=== PATIENT | female | born 1995 | race Hispanic/Latino ===

== ENCOUNTER 2016-10-07 11:04 | Outpatient (CLI) | payer SELFPAY ==
[2016-10-07] MEDS ORDERED: LACTATED RINGERS 500 ML IV ONE (11:30)
[2016-10-07 12:13] VITALS: BP 100/68
[2016-10-07] MEDS ORDERED: LACTATED RINGERS 1,000 ML ONE (14:07)
[2016-10-07 14:46] LABS: Urine Drugs of Abuse Note Disclamer
[2016-10-07 15:01] LABS: Bacteria,Urine 1+ /HPF (Negative); Bilirubin,Urine NEG (Negative); Blood,Urine NEG (Negative); Hemoglobin 11.3 gm/dl (10.1-14.3); Ketones,Urine NEG (Negative); Leukocyte Esterase,Urine SM (Negative); Mean Corpuscular HGB Conc 33 % (30-34); Mean Corpuscular Hemoglobin 31 pg (28-32); Mean Corpuscular Volume 94 fl (79-97); Mucus,Urine 3+ /HPF; Nitrite,Urine NEG (Negative); Platelet Count 271 K/mm3 (140-440); Red Blood Count 3.62 M/mm3 (3.65-5.03); Red Cell Distribution Width 13.9 % (13.2-15.2); Urobilinogen,Urine < 2.0 mg/dL (<2.0); White Blood Count 13.2 K/mm3 (4.5-11.0)
[2016-10-07 16:01] LABS: Basophils % (Manual) 0 % (0.0-1.8); Blastocytes % (Manual) 0 %
[2016-10-07 16:02] LABS: Anisocytosis 1+; Diff Status Complete; Platelet Estimate Consistent w Auto
[2016-10-07 16:10] LABS: HIV-1 Antigen p24 Non React (Non React); HIVR-1/2 Ab Non React (Non React)
--- NOTE | 2016-10-08 08:07 | Ultrasound Report ---
OB ULTRASOUND History: well-being. Technique: Transabdominal ultrasound with Doppler interrogation. Gestation: Single Position: Breech Amniotic Fluid: Normal Placenta: Posterior Placental Grade: 1 The inferior margin of the placenta abuts the internal cervical os consistent with a marginal previa. Heart Rate: 129 BPM Cervical length: 5.3 cm (Normal > 3 cm) NEUROANATOMY VISUALIZED: Choroid Plexus Cisterna Magnum Cerebellum Lateral Ventricle ANATOMY VISUALIZED: Stomach Kidneys Bladder Diaphragm 4 Chamber Heart Heart 3 Vessel Cord Abd. Cord Insert SPINE VISUALIZED: Limited spine due to position The following are not demonstrated due to maternal body habitus or lie: Transverse and longitudinal views of the spine. BPD: 5.5 cm = 22 w 6 d HC: 22.2 cm = 24 w 0 d AC: 18.2 cm = 23 w 0 d FL: 4.6 cm = 25 w 3 d HC/AC Ratio: 1.21 Cephalic Index: 70.4 Estimated Weight: 651 grams LMP: 04/22/16 Clinical age = 24 w 0 d EDC: 01/27/17 US Gest. Age = 23 w 6 d EDC: 01/28/17
== END 2016-10-07 17:15 | disposition home or self-care (01) ==
LOC: TRG 11:04 → EDBD 11:04 → TRG 11:06
PROVIDERS: ATTEND Obstetrics & Gynecology
DX: O32.1XX0 Maternal care for breech presentation, not applicable or unspecified (principal); O99.332 Smoking (tobacco) complicating pregnancy, second trimester; O47.02 False labor before 37 completed weeks of gestation, second trimester; Z3A.23 23 weeks gestation of pregnancy
CPT/HCPCS: 36415; 59025; 76805; 80307; 81001; 85007; 85025; 86592; 86706; 86762; 87591; 87806; 96360; J7120

== ENCOUNTER 2017-06-15 17:00 | Emergency (ER) | payer MEDICAID, OTHER ==
[2017-06-15 17:37] LABS: Hematocrit 40.7 % (30.3-42.9); Hemoglobin 13.7 gm/dl (10.1-14.3); Mean Corpuscular HGB Conc 34 % (30-34); Mean Corpuscular Hemoglobin 30 pg (28-32); Mean Corpuscular Volume 89 fl (79-97); Platelet Count 275 K/mm3 (140-440); Red Cell Distribution Width 15.1 % (13.2-15.2)
[2017-06-15 17:43] LABS: BUN/Creatinine Ratio 24; Blood Urea Nitrogen 17 mg/dL (7-17); Calcium 8.4 mg/dL (8.4-10.2); Hemolysis Index 4
[2017-06-15 18:08] LABS: Bacteria,Urine 1+ /HPF (Negative); Bilirubin,Urine NEG (Negative); Blood,Urine SM (Negative); Color,Urine Yellow (Yellow); Mucus,Urine FEW /HPF; Protein,Urine <15 mg/dL mg/dL (Negative); Urobilinogen,Urine < 2.0 mg/dL (<2.0); WBC,Urine > 182.0 /HPF (0.0-6.0)
[2017-06-15 18:19] LABS: Benzodiazepines Screen,Urine PRESUMPTIVE NEGATIVE; Cocaine Screen,Urine PRESUMPTIVE NEGATIVE; Methadone Screen,Urine PRESUMPTIVE NEGATIVE; Opiate Screen,Urine PRESUMPTIVE NEGATIVE
[2017-06-15 18:36] LABS: Amphetamine Screen,Urine PRESUMPTIVE POSITIVE; Cannabinoid Screen,Urine PRESUMPTIVE POSITIVE
[2017-06-15 19:49] LABS: Anisocytosis 1+; Basophils % (Manual) 0 % (0.0-1.8); Eosinophils % (Manual) 0 % (0.0-4.3); Platelet Estimate Consistent w Auto; Total Cells Counted 100
[2017-06-15] MEDS ORDERED: HALDOL IM PRN (20:25)
[2017-06-15] MEDS ORDERED: TYLENOL PO PRN (20:25)
[2017-06-15] MEDS ORDERED: ZOFRAN ODT PO PRN (20:25)
[2017-06-15] MEDS ORDERED: ATIVAN IM PRN (20:25)
[2017-06-15] MEDS ORDERED: ATIVAN IM SCH (20:30)
--- NOTE | 2017-06-15 21:23 | Emergency Department Report ---
ED General Adult HPI - General Chief complaint: Psych Stated complaint: MENTAL HEALTH Time Seen by Provider: 06/15/17 20:25 Source: patient, RN notes reviewed Mode of arrival: Ambulatory Limitations: Other (patient is psychotic and disorganized) - History of Present Illness Initial comments: This is a 22-year-old female who was previously unknown to this provider, patient presents to the ER with complaint of suicidality, methamphetamine use, reports hitting her head on a brick wall, and also reports head trauma 2 weeks ago. Her symptoms are constant, they exacerbated when she consumes methamphetamine. She also describes dysuria. Her symptoms do not radiate anywhere. She does not have access to guns or firearms. She wants to kill herself and does not have a concrete plan. She reports no hallucinations at this provider. -: Gradual Consistency: constant Improves with: other Worsens with: other Associated Symptoms: other. denies: confusion, chest pain, cough, diaphoresis, fever/chills, headaches, loss of appetite, malaise, nausea/vomiting, rash, seizure, shortness of breath, syncope, weakness - Related Data Allergies Allergy/AdvReac Type Severity Reaction Status Date / Time No Known Allergies Allergy Verified 10/07/16 11:38 ED Review of Systems ROS: Stated complaint: MENTAL HEALTH Other details as noted in HPI Constitutional: denies: fever Eyes: denies: vision change ENT: denies: epistaxis Respiratory: denies: cough Cardiovascular: denies: chest pain Gastrointestinal: denies: vomiting Genitourinary: dysuria Musculoskeletal: denies: back pain Neurological: denies: abnormal gait Psychiatric: suicidal thoughts ED Past Medical Hx - Past Medical History Previous Medical History?: Yes Hx Hypertension: No Hx Diabetes: No Hx Deep Vein Thrombosis: No Hx Renal Disease: No Hx Sickle Cell Disease: No Hx Seizures: No Hx Psychiatric Treatment: Yes (drug use) Hx Asthma: No Hx HIV: No - Surgical History Past Surgical History?: No - Social History Smoking Status: Current Every Day Smoker Substance Use Type: Alcohol, Heroin, Marijuana, Tranquilizers, Methamphetamines ED Physical Exam - General Limitations: No Limitations General appearance: alert, in no apparent distress - Head Head exam: Present: atraumatic, normocephalic - Eye Eye exam: Present: normal appearance, EOMI. Absent: nystagmus - ENT ENT exam: Present: normal exam, normal orophraynx, mucous membranes moist, normal external ear exam - Neck Neck exam: Present: normal inspection, full ROM. Absent: tenderness, meningismus - Respiratory Respiratory exam: Present: normal lung sounds bilaterally. Absent: respiratory distress - Cardiovascular Cardiovascular Exam: Present: normal rhythm, tachycardia, normal heart sounds. Absent: systolic murmur, diastolic murmur, rubs, gallop - GI/Abdominal GI/Abdominal exam: Present: soft, normal bowel sounds. Absent: distended, tenderness, guarding, rebound, rigid, pulsatile mass - Extremities Exam Extremities exam: Present: normal inspection, full ROM, normal capillary refill. Absent: pedal edema, joint swelling, calf tenderness - Back Exam Back exam: Present: normal inspection, full ROM. Absent: tenderness, CVA tenderness (R), paraspinal tenderness, vertebral tenderness - Neurological Exam Neurological exam: Present: alert, oriented X3, CN II-XII intact, normal gait, other (Extraocular movements intact. Tongue midline. No facial droop. Facial sensation intact to light touch in the V1, V2, V3 distribution bilaterally. 5 and 5 strength in 4 extremities.. Sensation is intact to light touch in 4 extremities.). Absent: motor sensory deficit - Psychiatric Psychiatric exam: Present: agitated, anxious, suicidal ideation - Skin Skin exam: Present: warm, dry, intact, normal color. Absent: rash ED Course Vital Signs 06/15/17 06/15/17 06/15/17 17:05 21:00 22:00 Temperature 97.5 F L 98.6 F Pulse Rate 132 H 100 H Respiratory 20 18 20 Rate Blood Pressure 112/73 Blood Pressure 99/66 [Left] O2 Sat by Pulse 100 100 100 Oximetry - Reevaluation(s) Reevaluation #1: 06/15/17 21:21 Differential diagnosis, including but not limited to: Psychosis, blunt head injury, urinary tract infection, methamphetamine use Assessment and plan: 22-year-old female who was disorganized, psychotic, suicidal, requires 1013, physical exam unremarkable with the exception of tachycardia, creatinine kinase within normal limits, tachycardia likely secondary to methamphetamine use. Noncontrast CT scan of the brain is ordered. This is ordered given her history of head trauma. There is no cervical spine pain or tenderness. Reevaluation #2: 06/16/17 00:[address] scan of the brain is negative for acute findings, based on the current information, they does not appear to be any immediate medical contraindication to psychiatric admission, evaluation and consultation at this time. crisis team was informed. ED Medical Decision Making - Lab Data Result diagrams: 06/15/17 17:21 06/15/17 17:21 Vital Signs 06/15/17 17:05 Temperature 97.5 F L Pulse Rate 132 H Respiratory 20 Rate Blood Pressure 112/73 O2 Sat by Pulse 100 Oximetry Lab Results 06/15/17 06/15/17 06/15/17 Range/Units 17:21 17:21 17:21 WBC (4.5-11.0) K/mm3 RBC (3.65-5.03) M/mm3 Hgb (10.1-14.3) gm/dl Hct (30.3-42.9) % MCV (79-97) fl MCH (28-32) pg MCHC (30-34) % RDW (13.2-15.2) % Plt Count (140-440) K/mm3 Add Manual Diff Total Counted Seg Neutrophils % Seg Neuts % (Manual) (40.0-70.0) % Band Neutrophils % % Lymphocytes % (Manual) (13.4-35.0) % Reactive Lymphs % (Man) % Monocytes % (Manual) (0.0-7.3) % Eosinophils % (Manual) (0.0-4.3) % Basophils % (Manual) (0.0-1.8) % Metamyelocytes % % Myelocytes % % Promyelocytes % % Blast Cells % % Nucleated RBC % Seg Neutrophils # Man (1.8-7.7) K/mm3 Band Neutrophils # K/mm3 Lymphocytes # (Manual) (1.2-5.4) K/mm3 Abs React Lymphs (Man) K/mm3 Monocytes # (Manual) (0.0-0.8) K/mm3 Eosinophils # (Manual) (0.0-0.4) K/mm3 Basophils # (Manual) (0.0-0.1) K/mm3 Metamyelocytes # K/mm3 Myelocytes # K/mm3 Promyelocytes # K/mm3 Blast Cells # K/mm3 WBC Morphology Hypersegmented Neuts Hyposegmented Neuts Hypogranular Neuts Smudge Cells Toxic Granulation Toxic Vacuolation Dohle Bodies Pelger-Huet Anomaly Nino Rods Platelet Estimate Clumped Platelets Plt Clumps, EDTA Large Platelets Giant Platelets Platelet Satelliting Plt Morphology Comment RBC Morphology Dimorphic RBCs Polychromasia Hypochromasia Poikilocytosis Anisocytosis Microcytosis Macrocytosis Spherocytes Pappenheimer Bodies Sickle Cells Target Cells Tear Drop Cells Ovalocytes Helmet Cells Jeffrey-Westwood Bodies [place] Rings Elías Cells Bite Cells Crenated Cell Elliptocytes Acanthocytes (Spur) Rouleaux Hemoglobin C Crystals Schistocytes Malaria parasites Akil Bodies Hem Pathologist Commnt Sodium 140 (137-145) mmol/L Potassium 4.2 (3.6-5.0) mmol/L Chloride 100.3 (98-107) mmol/L Carbon Dioxide 27 (22-30) mmol/L Anion Gap 17 mmol/L BUN 17 (7-17) mg/dL Creatinine 0.7 (0.7-1.2) mg/dL Estimated GFR > 60 ml/min BUN/Creatinine Ratio 24 % Glucose 123 H (65-100) mg/dL Calcium 8.4 (8.4-10.2) mg/dL Total Creatine Kinase 78 (30-135) units/L HCG, Qual (Negative) Urine Color (Yellow) Urine Turbidity (Clear) Urine pH (5.0-7.0) Ur Specific [place] (1.003-1.030) Urine Protein (Negative) mg/dL Urine Glucose (UA) (Negative) mg/dL Urine Ketones (Negative) mg/dL Urine Blood (Negative) Urine Nitrite (Negative) Urine Bilirubin (Negative) Urine Urobilinogen (<2.0) mg/dL Ur Leukocyte Esterase (Negative) Urine WBC (Auto) (0.0-6.0) /HPF Urine RBC (Auto) (0.0-6.0) /HPF U Epithel Cells (Auto) (0-13.0) /HPF Urine Bacteria (Auto) (Negative) /HPF Urine Mucus /HPF Salicylates < 0.3 L (2.8-20.0) mg/dL Urine Opiates Screen Urine Methadone Screen Acetaminophen < 15.0 (10.0-30.0) ug/mL Ur Barbiturates Screen Ur Phencyclidine Scrn Ur Amphetamines Screen U Benzodiazepines Scrn Urine Cocaine Screen U Marijuana (THC) Screen Drugs of Abuse Note Plasma/Serum Alcohol (0-0.07) % 06/15/17 06/15/17 06/15/17 Range/Units 17:21 17:21 17:21 WBC 7.9 (4.5-11.0) K/mm3 RBC 4.60 (3.65-5.03) M/mm3 Hgb 13.7 (10.1-14.3) gm/dl Hct 40.7 (30.3-42.9) % MCV 89 (79-97) fl MCH 30 (28-32) pg MCHC 34 (30-34) % RDW 15.1 (13.2-15.2) % Plt Count 275 (140-440) K/mm3 Add Manual Diff Complete Total Counted 100 Seg Neutrophils % Chocolate Coater Seg Neuts % (Manual) 91.0 H (40.0-70.0) % Band Neutrophils % 0 % Lymphocytes % (Manual) 8.0 L (13.4-35.0) % Reactive Lymphs % (Man) 0 % Monocytes % (Manual) 1.0 (0.0-7.3) % Eosinophils % (Manual) 0 (0.0-4.3) % Basophils % (Manual) 0 (0.0-1.8) % Metamyelocytes % 0 % Myelocytes % 0 % Promyelocytes % 0 % Blast Cells % 0 % Nucleated RBC % Not Reportable Seg Neutrophils # Man 7.2 (1.8-7.7) K/mm3 Band Neutrophils # 0.0 K/mm3 Lymphocytes # (Manual) 0.6 L (1.2-5.4) K/mm3 Abs React Lymphs (Man) 0.0 K/mm3 Monocytes # (Manual) 0.1 (0.0-0.8) K/mm3 Eosinophils # (Manual) 0.0 (0.0-0.4) K/mm3 Basophils # (Manual) 0.0 (0.0-0.1) K/mm3 Metamyelocytes # 0.0 K/mm3 Myelocytes # 0.0 K/mm3 Promyelocytes # 0.0 K/mm3 Blast Cells # 0.0 K/mm3 WBC Morphology Not Reportable Hypersegmented Neuts Not Reportable Hyposegmented Neuts Not Reportable Hypogranular Neuts Not Reportable Smudge Cells Not Reportable Toxic Granulation Not Reportable Toxic Vacuolation Not Reportable Dohle Bodies Not Reportable Pelger-Huet Anomaly Not Reportable Nino Rods Not Reportable Platelet Estimate Consistent w auto Clumped Platelets Not Reportable Plt Clumps, EDTA Not Reportable Large Platelets Not Reportable Giant Platelets Not Reportable Platelet Satelliting Not Reportable Plt Morphology Comment Not Reportable RBC Morphology Not Reportable Dimorphic RBCs Not Reportable Polychromasia Not Reportable Hypochromasia Not Reportable Poikilocytosis Not Reportable Anisocytosis 1+ Microcytosis Not Reportable Macrocytosis Not Reportable Spherocytes Not Reportable Pappenheimer Bodies Not Reportable Sickle Cells Not Reportable Target Cells Not Reportable Tear Drop Cells Not Reportable Ovalocytes Not Reportable Helmet Cells Not Reportable Jeffrey-Westwood Bodies Not Reportable [place] Rings Not Reportable Elías Cells Not Reportable Bite Cells Not Reportable Crenated Cell Not Reportable Elliptocytes Not Reportable Acanthocytes (Spur) Not Reportable Rouleaux Not Reportable Hemoglobin C Crystals Not Reportable Schistocytes Not Reportable Malaria parasites Not Reportable Akil Bodies Not Reportable Hem Pathologist Commnt No Sodium (137-145) mmol/L Potassium (3.6-5.0) mmol/L Chloride (98-107) mmol/L Carbon Dioxide (22-30) mmol/L Anion Gap mmol/L BUN (7-17) mg/dL Creatinine (0.7-1.2) mg/dL Estimated GFR ml/min BUN/Creatinine Ratio % Glucose (65-100) mg/dL Calcium (8.4-10.2) mg/dL Total Creatine Kinase (30-135) units/L HCG, Qual Negative (Negative) Urine Color (Yellow) Urine Turbidity (Clear) Urine pH (5.0-7.0) Ur Specific [place] (1.003-1.030) Urine Protein (Negative) mg/dL Urine Glucose (UA) (Negative) mg/dL Urine Ketones (Negative) mg/dL Urine Blood (Negative) Urine Nitrite (Negative) Urine Bilirubin (Negative) Urine Urobilinogen (<2.0) mg/dL Ur Leukocyte Esterase (Negative) Urine WBC (Auto) (0.0-6.0) /HPF Urine RBC (Auto) (0.0-6.0) /HPF U Epithel Cells (Auto) (0-13.0) /HPF Urine Bacteria (Auto) (Negative) /HPF Urine Mucus /HPF Salicylates (2.8-20.0) mg/dL Urine Opiates Screen Urine Methadone Screen Acetaminophen (10.0-30.0) ug/mL Ur Barbiturates Screen Ur Phencyclidine Scrn Ur Amphetamines Screen U Benzodiazepines Scrn Urine Cocaine Screen U Marijuana (THC) Screen Drugs of Abuse Note Plasma/Serum Alcohol < 0.01 (0-0.07) % 06/15/17 06/15/17 Range/Units 17:46 Unknown WBC (4.5-11.0) K/mm3 RBC (3.65-5.03) M/mm3 Hgb (10.1-14.3) gm/dl Hct (30.3-42.9) % MCV (79-97) fl MCH (28-32) pg MCHC (30-34) % RDW (13.2-15.2) % Plt Count (140-440) K/mm3 Add Manual Diff Total Counted Seg Neutrophils % Seg Neuts % (Manual) (40.0-70.0) % Band Neutrophils % % Lymphocytes % (Manual) (13.4-35.0) % Reactive Lymphs % (Man) % Monocytes % (Manual) (0.0-7.3) % Eosinophils % (Manual) (0.0-4.3) % Basophils % (Manual) (0.0-1.8) % Metamyelocytes % % Myelocytes % % Promyelocytes % % Blast Cells % % Nucleated RBC % Seg Neutrophils # Man (1.8-7.7) K/mm3 Band Neutrophils # K/mm3 Lymphocytes # (Manual) (1.2-5.4) K/mm3 Abs React Lymphs (Man) K/mm3 Monocytes # (Manual) (0.0-0.8) K/mm3 Eosinophils # (Manual) (0.0-0.4) K/mm3 Basophils # (Manual) (0.0-0.1) K/mm3 Metamyelocytes # K/mm3 Myelocytes # K/mm3 Promyelocytes # K/mm3 Blast Cells # K/mm3 WBC Morphology Hypersegmented Neuts Hyposegmented Neuts Hypogranular Neuts Smudge Cells Toxic Granulation Toxic Vacuolation Dohle Bodies Pelger-Huet Anomaly Nino Rods Platelet Estimate Clumped Platelets Plt Clumps, EDTA Large Platelets Giant Platelets Platelet Satelliting Plt Morphology Comment RBC Morphology Dimorphic RBCs Polychromasia Hypochromasia Poikilocytosis Anisocytosis Microcytosis Macrocytosis Spherocytes Pappenheimer Bodies Sickle Cells Target Cells Tear Drop Cells Ovalocytes Helmet Cells Jeffrey-Westwood Bodies [place] Rings Elías Cells Bite Cells Crenated Cell Elliptocytes Acanthocytes (Spur) Rouleaux Hemoglobin C Crystals Schistocytes Malaria parasites Akil Bodies Hem Pathologist Commnt Sodium (137-145) mmol/L Potassium (3.6-5.0) mmol/L Chloride (98-107) mmol/L Carbon Dioxide (22-30) mmol/L Anion Gap mmol/L BUN (7-17) mg/dL Creatinine (0.7-1.2) mg/dL Estimated GFR ml/min BUN/Creatinine Ratio % Glucose (65-100) mg/dL Calcium (8.4-10.2) mg/dL Total Creatine Kinase (30-135) units/L HCG, Qual (Negative) Urine Color Yellow (Yellow) Urine Turbidity Clear (Clear) Urine pH 6.0 (5.0-7.0) Ur Specific [place] 1.014 (1.003-1.030) Urine Protein <15 mg/dl (Negative) mg/dL Urine Glucose (UA) Neg (Negative) mg/dL Urine Ketones Neg (Negative) mg/dL Urine Blood Sm (Negative) Urine Nitrite Neg (Negative) Urine Bilirubin Neg (Negative) Urine Urobilinogen < 2.0 (<2.0) mg/dL Ur Leukocyte Esterase Lg (Negative) Urine WBC (Auto) > 182.0 H (0.0-6.0) /HPF Urine RBC (Auto) 36.0 (0.0-6.0) /HPF U Epithel Cells (Auto) 1.0 (0-13.0) /HPF Urine Bacteria (Auto) 1+ (Negative) /HPF Urine Mucus Few /HPF Salicylates (2.8-20.0) mg/dL Urine Opiates Screen Presumptive negative Urine Methadone Screen Presumptive negative Acetaminophen (10.0-30.0) ug/mL Ur Barbiturates Screen Presumptive negative Ur Phencyclidine Scrn Presumptive negative Ur Amphetamines Screen Presumptive positive U Benzodiazepines Scrn Presumptive negative Urine Cocaine Screen Presumptive negative U Marijuana (THC) Screen Presumptive positive Drugs of Abuse Note Disclamer Plasma/Serum Alcohol (0-0.07) % Critical care attestation.: If time is entered above; I have spent that time in minutes in the direct care of this critically ill patient, excluding procedure time. ED Disposition Clinical Impression: Medical clearance for psychiatric admission, Suicide ideation, Methamphetamine abuse Disposition: [id number] PSY HOSP/PSY UNIT Is pt being admited?: No Does the pt Need Aspirin: No Condition: Stable
--- NOTE | 2017-06-15 23:00 | Cat Scan Report ---
FINAL REPORT PROCEDURE: CT HEAD/BRAIN WO CON TECHNIQUE: Computerized tomography of the head was performed without contrast material. HISTORY: HISTORY OF HEAD TRAUMA COMPARISON: No prior studies are available for comparison. FINDINGS: Skull and scalp: Fracture left nasal bone strut. Paranasal sinuses: Mucosal thickening left posterior maxillary sinus. Ventricles and subarachnoid spaces: Normal. Cerebrum: No evidence of hemorrhage, acute infarction or mass . Cerebellum and brainstem: No evidence of hemorrhage, acute infarction or mass. Vasculature: Normal. Comments: None. IMPRESSION: No acute intracranial pathology. No intracranial bleed or fracture
[2017-06-15] MEDS: MACROBID PO SCH (23:21)
[2017-06-16] MEDS: MACROBID PO SCH (10:40)
[2017-06-16] MEDS ORDERED: HABITROL TD ONE (12:27)
--- NOTE | 2017-06-16 17:37 | Consultation ---
History of Present Illness - Reason for Consult Consult date: 06/16/17 Reason for consult: Mental Health Evaluation Requesting physician: DAISY LAL - Chief Complaint Chief complaint: "I need help" - History of Present Psychiatric Illness 22 y.o. white female presenting to [facility] for substance abuse and SI's. Today the patient is cooperative, but anxious during the assessment. She stated that she has been binging on amphetamines for several days prior to her admission to the hospital. She stated that she used drugs to decrease the voices she hear consistently. She stated that she hear voices when she isn't using recreational drugs. She stated that her life is the cause of her being suicidal on admission. She could not confirm or deny SI's when asked. She rate her depression/anxiety 7/10, with 10 being the worse. She stated that her priority is staying off drugs when discharged. She admitted to erratic sleep and a poor appetite. She denies HI's and VH's. She denies any manic episodes in the past. She denies alcohol consumption (etoh). Medications and Allergies Allergies Allergy/AdvReac Type Severity Reaction Status Date / Time No Known Allergies Allergy Verified 10/07/16 11:38 Active Meds: Active Medications Acetaminophen (Tylenol) 650 mg PO Q6HR PRN PRN Reason: Pain Haloperidol Lactate (Haldol) 5 mg IM Q6HR PRN PRN Reason: Agitation Lorazepam (Ativan) 2 mg IM Q4HR PRN PRN Reason: Agitation Last Admin: 06/16/17 13:09 Dose: 2 mg Lorazepam (Ativan) 3 mg IM NOW [facility] Last Admin: 06/15/17 23:21 Dose: 3 mg Nitrofurantoin Macrocrystals (Macrobid) 100 mg PO BID [facility] Stop: 06/22/17 10:01 Last Admin: 06/16/17 10:40 Dose: 100 mg Ondansetron HCl (Zofran Odt) 4 mg PO Q6HR PRN PRN Reason: Nausea Past psychiatric history - Past Medical History Past Medical History: other Past Surgical History: No surgical history - past Psychiatric treatment and history Psych: Anxiety, Depression psychiatric treatment history: Seen outpatient for depression and anxiety. Denies a fam psy hx. - Social History Social history: other (Homeless) Mental Status Exam - Vital signs Last Vital Signs Temp 97.6 F 06/16/17 08:30 Pulse 112 H 06/16/17 08:30 Resp 16 06/16/17 08:30 BP 102/67 06/16/17 08:30 Pulse Ox 100 06/16/17 08:30 - Exam Narrative exam: MSE: Appearance: cooperative Behavior: regular eye contact Speech: regular rate and tone Mood: "anxious and depressed" Affect: congruent to mood Thought Process: circumstantial Thought Content: denies HI's and VH's, cannot confirm or deny SI's Motor Activity: ambulatory Cognition: A/O x3 Insight: variable Judgment: variable Results Result Diagrams: 06/15/17 17:21 06/15/17 17:21 Abnormal lab results 06/15/17 06/15/17 06/15/17 Range/Units 17:21 17:21 17:21 Seg Neuts % (Manual) 91.0 H (40.0-70.0) % Lymphocytes % (Manual) 8.0 L (13.4-35.0) % Lymphocytes # (Manual) 0.6 L (1.2-5.4) K/mm3 Glucose 123 H (65-100) mg/dL Urine WBC (Auto) (0.0-6.0) /HPF Salicylates < 0.3 L (2.8-20.0) mg/dL 06/15/17 Range/Units 17:46 Seg Neuts % (Manual) (40.0-70.0) % Lymphocytes % (Manual) (13.4-35.0) % Lymphocytes # (Manual) (1.2-5.4) K/mm3 Glucose (65-100) mg/dL Urine WBC (Auto) > 182.0 H (0.0-6.0) /HPF Salicylates (2.8-20.0) mg/dL All other labs normal. Assessment and Plan Assessment and plan: Impression: MDD with psychosis. Substance Use DO (amphetamines). Today the patient is cooperative, but anxious during the assessment. The patient cannot confirm or deny SI's. DDx: Schizoaffective DO, R/O Bipolar DO, R/O Substance Induced Mood DO Recommendation/Plan: Continue 1013 with placement to inpatient psy services. Start Zoloft 50 mg PO daily for depression, Seroquel 100 mg PO HS for mood/ psychosis, and Vistaril 25 mg PO Q6hrs PRN for acute anxiety. Discussed possible suicidality/medication induced patti with patient reference Harlan. Discussed possible metabolic side effects of Seroquel with patient.
[2017-06-16] MEDS ORDERED: VISTARIL PO PRN (17:53)
[2017-06-16] MEDS ORDERED: ZOLOFT PO SCH (18:00)
[2017-06-16 19:56] VITALS: BP 115/73
== END 2017-06-16 19:57 ==
LOC: ED 17:00
DX: F32.9 Major depressive disorder, single episode, unspecified (principal); F23 Brief psychotic disorder
CPT/HCPCS: 36415; 70450; 80048; 80307; 81001; 82550; 84703; 85007; 85025; 96372; 99284; G0480; J2060; 80320

== ENCOUNTER 2017-07-13 11:25 | Emergency (ER) | payer OTHER ==
[2017-07-13 12:23] LABS: Basophils # (Auto) 0.1 K/mm3 (0.0-0.1); Basophils % (Auto) 0.7 % (0.0-1.8); Eosinophils # (Auto) 0.1 K/mm3 (0.0-0.4); Eosinophils % (Auto) 1.1 % (0.0-4.3); Hemoglobin 12.7 gm/dl (10.1-14.3); Lymphocytes # (Auto) 2.4 K/mm3 (1.2-5.4); Mean Corpuscular HGB Conc 32 % (30-34); Mean Corpuscular Hemoglobin 28 pg (28-32); Mean Corpuscular Volume 89 fl (79-97); Monocytes # (Auto) 0.7 K/mm3 (0.0-0.8); Monocytes % (Auto) 6.2 % (0.0-7.3); Platelet Count 411 K/mm3 (140-440); Red Blood Count 4.48 M/mm3 (3.65-5.03); Red Cell Distribution Width 15.8 % (13.2-15.2)
[2017-07-13 12:39] LABS: BUN/Creatinine Ratio 21; Blood Urea Nitrogen 17 mg/dL (7-17); Calcium 9.5 mg/dL (8.4-10.2); Hemolysis Index 3
[2017-07-13 12:47] LABS: HCG Qualitative,Urine Negative (Negative)
[2017-07-13 12:51] LABS: Bacteria,Urine 1+ /HPF (Negative); Bilirubin,Urine NEG (Negative); Blood,Urine NEG (Negative); Color,Urine Yellow (Yellow); Hyaline Casts,Urine 2 /LPF; Mucus,Urine 3+ /HPF; Protein,Urine <15 mg/dL mg/dL (Negative)
[2017-07-13 12:59] LABS: Cocaine Screen,Urine PRESUMPTIVE NEGATIVE; Methadone Screen,Urine PRESUMPTIVE NEGATIVE; Opiate Screen,Urine PRESUMPTIVE NEGATIVE
[2017-07-13 13:18] LABS: Amphetamine Screen,Urine PRESUMPTIVE POSITIVE; Benzodiazepines Screen,Urine PRESUMPTIVE POSITIVE; Cannabinoid Screen,Urine PRESUMPTIVE POSITIVE
--- NOTE | 2017-07-13 14:05 | Emergency Department Report ---
ED Psych HPI - General Chief Complaint: Psych Stated Complaint: MENTAL HEALTH EVALUATION Time Seen by Provider: 07/13/17 13:53 Source: patient Mode of arrival: Ambulatory - History of Present Illness Initial Comments: Patient is 22 years old female history of polysubstance abuse that includes heroine, cocaine, meth and marijuana. Patient presented to the ER accompanied by her parents. Parents stated that she has been making suicidal threats, she informed them that she thinks about jumping off a bridge. Patient also stated that she's been hearing voices but denied any visual hallucination. MD Complaint: suicidal ideation, altered mental status -: Gradual Associated Psychiatric Symptoms: depression, suicidal ideation, auditory hallucinations - Related Data Home Medications Medication Instructions Recorded Confirmed Last Taken No Known Home Medications [No 06/16/17 06/16/17 Unknown Reported Home Medications] Allergies Allergy/AdvReac Type Severity Reaction Status Date / Time No Known Allergies Allergy Verified 10/07/16 11:38 ED Review of Systems ROS: Stated complaint: MENTAL HEALTH EVALUATION Other details as noted in HPI Comment: All other systems reviewed and negative Constitutional: denies: chills, fever Respiratory: denies: cough, orthopnea, shortness of breath Cardiovascular: denies: chest pain, palpitations Gastrointestinal: denies: abdominal pain, nausea, vomiting, diarrhea, constipation, hematemesis, melena, hematochezia Musculoskeletal: denies: back pain Neurological: denies: headache, weakness, numbness, paresthesias ED Past Medical Hx - Past Medical History Previous Medical History?: Yes Hx Hypertension: No Hx Diabetes: No Hx Deep Vein Thrombosis: No Hx Renal Disease: No Hx Sickle Cell Disease: No Hx Seizures: No Hx Psychiatric Treatment: Yes (drug use) Hx Asthma: No Hx HIV: No - Surgical History Past Surgical History?: No - Social History Smoking Status: Current Every Day Smoker Substance Use Type: Alcohol, Cocaine, Heroin, Marijuana, Tranquilizers, Methamphetamines - Medications Home Medications: Home Medications Medication Instructions Recorded Confirmed Last Taken Type No Known Home Medications [No 06/16/17 06/16/17 Unknown History Reported Home Medications] ED Physical Exam - General Limitations: No Limitations General appearance: alert, in no apparent distress, anxious, other (patient is slightly agitated) - Head Head exam: Present: atraumatic, normocephalic, normal inspection - Eye Eye exam: Present: normal appearance, PERRL - ENT ENT exam: Present: normal exam - Neck Neck exam: Present: normal inspection, full ROM. Absent: tenderness, meningismus, lymphadenopathy, thyromegaly - Respiratory Respiratory exam: Present: normal lung sounds bilaterally - Cardiovascular Cardiovascular Exam: Present: regular rate, normal rhythm, normal heart sounds - GI/Abdominal GI/Abdominal exam: Present: soft, normal bowel sounds. Absent: distended, tenderness, guarding, rebound, rigid, mass, bruit, pulsatile mass - Extremities Exam Extremities exam: Present: normal inspection, full ROM, normal capillary refill - Back Exam Back exam: Present: normal inspection, full ROM. Absent: CVA tenderness (L) - Neurological Exam Neurological exam: Present: alert, oriented X3, CN II-XII intact, normal gait - Psychiatric Psychiatric exam: Present: depressed, agitated, anxious, manic, suicidal ideation. Absent: homicidal ideation - Skin Skin exam: Present: warm, intact, normal color ED Course Vital Signs 07/13/17 11:40 Temperature 98.2 F Pulse Rate 90 Respiratory 18 Rate Blood Pressure 120/85 O2 Sat by Pulse 100 Oximetry ED Medical Decision Making - Lab Data Result diagrams: 07/13/17 12:04 07/13/17 12:04 Critical care attestation.: If time is entered above; I have spent that time in minutes in the direct care of this critically ill patient, excluding procedure time. ED Disposition Clinical Impression: Acute psychosis, Suicidal ideation, Substance abuse Disposition: [id number]/TX-[id number] PSY HOSP/PSY UNIT Is pt being admited?: No Condition: Stable Referrals: PRIMARY CARE, [Primary Care Provider] - 3-5 Days
[2017-07-13] MEDS ORDERED: ATIVAN PO ONE (17:43)
[2017-07-13] MEDS ORDERED: BENADRYL PO ONE (17:43)
[2017-07-14 08:44] VITALS: BP 112/61
[2017-07-14] MEDS ORDERED: VISTARIL ONE (09:51)
[2017-07-14] MEDS ORDERED: VISTARIL PO ONE (09:52)
[2017-07-14] MEDS ORDERED: HABITROL TD ONE (10:40)
--- NOTE | 2017-07-14 13:20 | Consultation ---
History of Present Illness - Reason for Consult Consult date: 07/14/17 Reason for consult: Mental Health Evaluation Requesting physician: MARCIA HAQ - Chief Complaint Chief complaint: "I need help" - History of Present Psychiatric Illness 22 years old female history of polysubstance abuse presenting to [facility] for SI's and anxiety. This patient is known to me. Today the patient is calm and cooperative during assessment. She stated that she want to stop using "drugs." She stated that drugs has been a down fall for her the last 2 years. She stated that she "probably" isn't suicidal now, but have had thoughts (suicidal) for several days. She stated that getting help for her substance abuse is priority. She rate her depression/anxiety 7/10, with 10 being the worse. She denies SI/HI' s and AVH's. She denies erratic sleep and a poor appetite. She denies alcohol consumption (etoh). Medications and Allergies Allergies Allergy/AdvReac Type Severity Reaction Status Date / Time No Known Allergies Allergy Verified 10/07/16 11:38 Home Medications Medication Instructions Recorded Confirmed Last Taken Type No Known Home Medications [No 06/16/17 06/16/17 Unknown History Reported Home Medications] Past psychiatric history - Past Medical History Past Medical History: No medical history, other Past Surgical History: No surgical history - past Psychiatric treatment and history Psych: Depression psychiatric treatment history: Inpatient psy setting for depression and substance abuse. Denies a fam psy hx. - Social History Social history: lives with family Mental Status Exam - Vital signs Last Vital Signs Temp 97.6 F 07/14/17 08:42 Pulse 108 H 07/14/17 08:42 Resp 16 07/14/17 08:42 BP 112/61 07/14/17 08:42 Pulse Ox 98 07/14/17 08:42 - Exam Narrative exam: MSE: Appearance: calm, cooperative Behavior: regular eye contact Speech: regular rate and tone Mood: withdrawn Affect: congruent to mood Thought Process: circumstantial Thought Content: denies SI/HI's and AVH's, suicidal thoughts Motor Activity: sitting up in bed Cognition: A/O x 3 Insight: variable Judgment: variable Results Result Diagrams: 07/13/17 12:04 07/13/17 12:04 All other labs normal. Assessment and Plan Assessment and plan: Impression: MDD. RIYA. Substance Use DO (amphetamines). Cannabis Use DO. Today the patient is calm, cooperative, but anxious during the assessment. The patient is positive for benzos. DDx: R/O Bipolar DO, R/O Substance Induced Mood DO Recommendation/Plan: Continue 1013 with placement to [place] [facility] today. Vistaril 25 mg PO once for anxiety.
== END 2017-07-14 10:40 ==
LOC: ED 11:25 → EEVIPCON 11:25 → ED 07-14 10:40
DX: F32.9 Major depressive disorder, single episode, unspecified (principal); F41.1 Generalized anxiety disorder; F12.10 Cannabis abuse, uncomplicated; F14.10 Cocaine abuse, uncomplicated; F15.10 Other stimulant abuse, uncomplicated; F19.10 Other psychoactive substance abuse, uncomplicated; F17.200 Nicotine dependence, unspecified, uncomplicated; Z79.899 Other long term (current) drug therapy
CPT/HCPCS: 36415; 80048; 80307; 81001; 81025; 85025; 99285; G0480; 80320; Q0177

== ENCOUNTER 2018-09-27 01:38 | Emergency (ER) | payer OTHER ==
--- NOTE | 2018-09-27 04:07 | Emergency Department Report ---
- General Chief complaint: Extremity Injury, Upper Stated complaint: BODY RASH Time Seen by Provider: 09/27/18 03:50 Source: patient Mode of arrival: Ambulatory Limitations: No Limitations - History of Present Illness Initial comments: 23-year-old female Chang reports injecting a needle into her left forearm on yesterday, presents today complaining unrated tender area. She would like to have evaluated. She reports no chest pain, palpitations, nausea, vomiting, fevers, chills, sweats. MD complaint: discoloration -: Sudden Tetanus Up to Date: unsure Location: LUE Severity: mild, moderate Quality: dull Consistency: constant Improves with: none Worsens with: none Context: none Associated symptoms: denies other symptoms Treatments Prior to Arrival: none - Related Data Previous Rx's Medication Instructions Recorded Last Taken Type Chlorhexidine Gluconate [Hibiclens] 10 ml TP BID #240 liquid 09/27/18 Unknown Rx Sulfamethoxazole/Trimethoprim 1 each PO BID #20 tablet 09/27/18 Unknown Rx [Bactrim Ds] cephALEXin [Keflex] 500 mg PO Q6HR #40 capsule 09/27/18 Unknown Rx Allergies Allergy/AdvReac Type Severity Reaction Status Date / Time No Known Allergies Allergy Verified 03/16/18 07:04 Abscess Boil [facility] - HPI Chief Complaint: Extremity Injury, Upper Stated Complaint: BODY RASH Time Seen by Provider: 09/27/18 03:50 Home Medications: Previous Rx's Medication Instructions Recorded Last Taken Type Chlorhexidine Gluconate [Hibiclens] 10 ml TP BID #240 liquid 09/27/18 Unknown Rx Sulfamethoxazole/Trimethoprim 1 each PO BID #20 tablet 09/27/18 Unknown Rx [Bactrim Ds] cephALEXin [Keflex] 500 mg PO Q6HR #40 capsule 09/27/18 Unknown Rx Allergies/Adverse Reactions: Allergies Allergy/AdvReac Type Severity Reaction Status Date / Time No Known Allergies Allergy Verified 03/16/18 07:04 ED Review of Systems ROS: Stated complaint: BODY RASH Other details as noted in HPI Constitutional: denies: chills, fever Eyes: denies: eye pain, eye discharge, vision change ENT: denies: ear pain, throat pain Respiratory: denies: cough, shortness of breath, wheezing Cardiovascular: denies: chest pain, palpitations Endocrine: no symptoms reported Gastrointestinal: denies: abdominal pain, nausea, diarrhea Genitourinary: denies: urgency, dysuria, discharge Musculoskeletal: denies: back pain, joint swelling, arthralgia Skin: change in color. denies: rash, lesions Neurological: denies: headache, weakness, paresthesias Psychiatric: denies: anxiety, depression Hematological/Lymphatic: denies: easy bleeding, easy bruising ED Past Medical Hx - Past Medical History Previous Medical History?: Yes Hx Hypertension: No Hx Diabetes: No Hx Deep Vein Thrombosis: No Hx Renal Disease: No Hx Sickle Cell Disease: No Hx Seizures: No Hx Psychiatric Treatment: Yes (drug use) Hx Asthma: No Hx HIV: No - Surgical History Past Surgical History?: No - Social History Smoking Status: Current Every Day Smoker Substance Use Type: Alcohol, Marijuana, Methamphetamines - Medications Home Medications: Home Medications Medication Instructions Recorded Confirmed Last Taken Type Chlorhexidine Gluconate [Hibiclens] 10 ml TP BID #240 liquid 09/27/18 Unknown Rx Sulfamethoxazole/Trimethoprim 1 each PO BID #20 tablet 09/27/18 Unknown Rx [Bactrim Ds] cephALEXin [Keflex] 500 mg PO Q6HR #40 capsule 09/27/18 Unknown Rx ED Physical Exam - General Limitations: No Limitations General appearance: alert, in no apparent distress - Head Head exam: Present: atraumatic, normocephalic - Eye Eye exam: Present: normal appearance, PERRL, EOMI, scleral icterus Pupils: Present: normal accommodation - ENT ENT exam: Present: normal exam, normal orophraynx, mucous membranes moist - Neck Neck exam: Present: normal inspection, full ROM - Respiratory Respiratory exam: Present: normal lung sounds bilaterally. Absent: respiratory distress, rhonchi, stridor, accessory muscle use, decreased breath sounds - Cardiovascular Cardiovascular Exam: Present: regular rate, normal rhythm. Absent: systolic murmur, diastolic murmur, rubs, gallop - GI/Abdominal GI/Abdominal exam: Present: soft, normal bowel sounds - Extremities Exam Extremities exam: Present: normal inspection - Expanded Upper Extremity Exam Left Forearm Wrist exam: Present: erythema (circular area of cellulitis of the left forearm with warmth associated. Area is 7 cm in diameter) - Back Exam Back exam: Present: normal inspection - Neurological Exam Neurological exam: Present: alert, oriented X3 - Psychiatric Psychiatric exam: Present: normal affect, normal mood - Skin Skin exam: Present: warm, dry, intact, normal color. 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 The left forearm and now has some cellulitis at injection spot. No course I will was appreciated. No swelling, no evidence of any in in any DVT. Warm and tender vaginal probe with treatment regimen and a bursa to discontinue IV illicit drug therapy Critical care attestation.: If time is entered above; I have spent that time in minutes in the direct care o f this critically ill patient, excluding procedure time. ED Disposition Clinical Impression: Cellulitis, Drug abuse, IV Disposition: DC- TO HOME OR SELFCARE Is pt being admited?: No Does the pt Need Aspirin: No Condition: Stable Instructions: Cellulitis (ED) Prescriptions: Sulfamethoxazole/Trimethoprim [Bactrim Ds] 1 each PO BID #20 tablet Chlorhexidine Gluconate [Hibiclens] 10 ml TP BID #240 liquid cephALEXin [Keflex] 500 mg PO Q6HR #40 capsule Referrals: VIRGINIA THURSTON MD [Primary Care Provider] - 24 Hours
== END 2018-09-27 05:25 | disposition home or self-care (01) ==
LOC: ED 01:38
DX: L03.114 Cellulitis of left upper limb (principal); F15.10 Other stimulant abuse, uncomplicated; F12.10 Cannabis abuse, uncomplicated; F17.200 Nicotine dependence, unspecified, uncomplicated
CPT/HCPCS: 99282

== ENCOUNTER 2020-10-26 18:04 | Emergency (ER) | payer OTHER, SELFPAY ==
[2020-10-26 19:15] LABS: Bilirubin,Urine NEG (Negative); Blood,Urine NEG (Negative); Color,Urine Yellow (Yellow); Mucus,Urine 3+ /HPF
[2020-10-26 19:18] LABS: Benzodiazepines Screen,Urine Negative; Cocaine Screen,Urine Negative; Methadone Screen,Urine Negative; Opiate Screen,Urine Negative
[2020-10-26 19:18] LABS: Basophils # (Auto) 0.1 K/mm3 (0.0-0.1); Basophils % (Auto) 0.9 % (0.0-1.8); Eosinophils # (Auto) 0.1 K/mm3 (0.0-0.4); Eosinophils % (Auto) 1.3 % (0.0-4.3); Hematocrit 42.3 % (30.3-42.9); Hemoglobin 14.3 gm/dl (10.1-14.3); Lymphocytes # (Auto) 3.3 K/mm3 (1.2-5.4); Lymphocytes % (Auto) 36.8 % (13.4-35.0); Mean Corpuscular HGB Conc 34 % (30-34); Mean Corpuscular Volume 95 fl (79-97); Monocytes # (Auto) 1.1 K/mm3 (0.0-0.8); Monocytes % (Auto) 11.9 % (0.0-7.3); Platelet Count 288 K/mm3 (140-440); Red Blood Count 4.43 M/mm3 (3.65-5.03); Red Cell Distribution Width 13.6 % (13.2-15.2)
[2020-10-26 19:24] LABS: BUN/Creatinine Ratio 14; Blood Urea Nitrogen 11 mg/dL (7-17); Calcium 9.2 mg/dL (8.4-10.2); Hemolysis Index 9
[2020-10-26 19:41] LABS: Amphetamine Screen,Urine Positive; Cannabinoid Screen,Urine Positive
--- NOTE | 2020-10-26 19:42 | Emergency Department Report ---
HPI - HPI HPI: 25-year-old female with history of schizophrenia not currently on any medications presents due to suicidal ideation. The patient says she is very depressed about life because she is homeless and has no job. The patient states that she is having thoughts of killing herself and thought she may have had an arrest warrant out so she had someone call the police for her. He denies auditory or visual hallucinations. She does not have a plan for how she would kill herself. She denies any physical symptoms or complaints. She denies drug use. <SANDY ARCHULETA - Last Filed: 10/26/20 19:43> <DALTON AYERS - Last Filed: 10/27/20 12:06> - General Chief Complaint: Psych Time Seen by Provider: 10/26/20 18:30 ED Past Medical Hx - Past Medical History Previous Medical History?: Yes Hx Hypertension: No Hx Diabetes: No Hx Deep Vein Thrombosis: No Hx Renal Disease: No Hx Sickle Cell Disease: No Hx Seizures: No Hx Psychiatric Treatment: Yes (drug use) Hx Asthma: No Hx HIV: No - Social History Smoking Status: Current Every Day Smoker Substance Use Type: Methamphetamines <SANDY ARCHULETA - Last Filed: 10/26/20 19:43> <DALTON AYERS - Last Filed: 10/27/20 12:06> - Medications Home Medications: Home Medications Medication Instructions Recorded Confirmed Last Taken Type Chlorhexidine Gluconate [Hibiclens] 10 ml TP BID #240 liquid 09/27/18 10/27/20 Unknown Rx Sulfamethoxazole/Trimethoprim 1 each PO BID #20 tablet 09/27/18 10/27/20 Unknown Rx [Bactrim Ds] cephALEXin [Keflex] 500 mg PO Q6HR #40 capsule 09/27/18 10/27/20 Unknown Rx ED Review of Systems ROS: Stated complaint: SUICIDAL IDEATION Other details as noted in HPI Constitutional: denies: chills, fever Eyes: denies: eye pain, vision change ENT: denies: throat pain, congestion Respiratory: denies: cough, shortness of breath Cardiovascular: denies: chest pain, palpitations Gastrointestinal: denies: abdominal pain, nausea, vomiting Genitourinary: denies: dysuria, frequency Musculoskeletal: denies: back pain Skin: denies: rash Neurological: denies: headache, weakness, numbness, paresthesias Psychiatric: depression, suicidal thoughts. denies: auditory hallucinations, visual hallucinations, homicidal thoughts <KATHESANDY - Last Filed: 10/26/20 19:43> ROS: Stated complaint: SUICIDAL IDEATION Other details as noted in HPI <ANDRIADALTON - Last Filed: 10/27/20 12:06> Physical Exam - Physical Exam Vital Signs: Vital Signs 10/26/20 18:27 Temperature 97.9 F Pulse Rate 106 H Respiratory 18 Rate Blood Pressure 127/78 [Left] O2 Sat by Pulse 100 Oximetry Physical Exam: GENERAL: Well developed and well nourished. No acute distress HEAD: Normocephalic. No obvious signs of trauma. ENT: Moist mucous membranes. EYES: Extraocular movements are intact. Pupils are equal round and reactive to light bilaterally NECK: Supple. Full ROM is intact. Trachea is midline. LUNGS: Nonlabored breathing. Equal chest rise bilaterally. Clear to auscultation bilaterally. CARDIOVASCULAR: Regular rate and rhythm. No murmurs or rubs. VASCULAR: Cap refill < 2 seconds ABDOMEN: Abdomen is soft and nondistended. There is no significant tenderness, guarding or rebound. SKIN: Skin is warm and dry. Multiple excoriations throughout the body. NEURO: Patient is awake, alert, and oriented. 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 No fo christopher deficits. Normal motor and sensory exam throughout. Normal speech. MUSCULOSKELETAL: No obvious deformities. No significant tenderness. Normal ROM throughout. <SANDY ARCHULETA - Last Filed: 10/26/20 19:43> - Physical Exam Vital Signs: Vital Signs 10/26/20 10/26/20 10/27/20 18:27 20:00 11:02 Temperature 97.9 F 97.8 F Pulse Rate 106 H 73 Respiratory 18 18 20 Rate Blood Pressure 127/78 124/64 [Left] O2 Sat by Pulse 100 100 96 Oximetry <ANDRIADALTON - Last Filed: 10/27/20 12:06> ED Course Vital Signs 10/26/20 18:27 Temperature 97.9 F Pulse Rate 106 H Respiratory 18 Rate Blood Pressure 127/78 [Left] O2 Sat by Pulse 100 Oximetry <KATHESANDY - Last Filed: 10/26/20 19:43> Vital Signs 10/26/20 10/26/20 10/27/20 18:27 20:00 11:02 Temperature 97.9 F 97.8 F Pulse Rate 106 H 73 Respiratory 18 18 20 Rate Blood Pressure 127/78 124/64 [Left] O2 Sat by Pulse 100 100 96 Oximetry <DALTON AYERS - Last Filed: 10/27/20 12:06> ED Medical Decision Making - Lab Data Result diagrams: 10/26/20 18:45 10/26/20 18:45 Lab Results 10/26/20 10/26/20 10/26/20 Range/Units 18:45 18:45 18:45 WBC (4.5-11.0) K/mm3 RBC (3.65-5.03) M/mm3 Hgb (10.1-14.3) gm/dl Hct (30.3-42.9) % MCV (79-97) fl MCH (28-32) pg MCHC (30-34) % RDW (13.2-15.2) % Plt Count (140-440) K/mm3 Lymph % (Auto) (13.4-35.0) % [place] % (Auto) (0.0-7.3) % Eos % (Auto) (0.0-4.3) % Baso % (Auto) (0.0-1.8) % Lymph # (Auto) (1.2-5.4) K/mm3 [place] # (Auto) (0.0-0.8) K/mm3 Eos # (Auto) (0.0-0.4) K/mm3 Baso # (Auto) (0.0-0.1) K/mm3 Seg Neutrophils % (40.0-70.0) % Seg Neutrophils # (1.8-7.7) K/mm3 Sodium 138 (137-145) mmol/L Potassium 3.4 L (3.6-5.0) mmol/L Chloride 97.0 L (98-107) mmol/L Carbon Dioxide 25 (22-30) mmol/L Anion Gap 19 mmol/L BUN 11 (7-17) mg/dL Creatinine 0.8 (0.6-1.2) mg/dL Estimated GFR > 60 ml/min BUN/Creatinine Ratio 14 % Glucose 72 (65-100) mg/dL Calcium 9.2 (8.4-10.2) mg/dL Urine Color (Yellow) Urine Turbidity (Clear) Urine pH (5.0-7.0) Ur Specific [place] (1.003-1.030) Urine Protein (Negative) mg/dL Urine Glucose (UA) (Negative) mg/dL Urine Ketones (Negative) mg/dL Urine Blood (Negative) Urine Nitrite (Negative) Urine Bilirubin (Negative) Urine Urobilinogen (<2.0) mg/dL Ur Leukocyte Esterase (Negative) Urine WBC (Auto) (0.0-6.0) /HPF Urine RBC (Auto) (0.0-6.0) /HPF U Epithel Cells (Auto) (0-13.0) /HPF Urine Mucus /HPF Salicylates < 0.3 L (2.8-20.0) mg/dL Urine Opiates Screen Urine Methadone Screen Acetaminophen 5.0 L (10.0-30.0) ug/mL Ur Barbiturates Screen Ur Phencyclidine Scrn U Benzodiazepines Scrn Urine Cocaine Screen Plasma/Serum Alcohol (0-0.07) % 10/26/20 10/26/20 10/26/20 Range/Units 18:45 18:45 18:48 WBC 9.0 (4.5-11.0) K/mm3 RBC 4.43 (3.65-5.03) M/mm3 Hgb 14.3 (10.1-14.3) gm/dl Hct 42.3 (30.3-42.9) % MCV 95 (79-97) fl MCH 32 (28-32) pg MCHC 34 (30-34) % RDW 13.6 (13.2-15.2) % Plt Count 288 (140-440) K/mm3 Lymph % (Auto) 36.8 H (13.4-35.0) % [place] % (Auto) 11.9 H (0.0-7.3) % Eos % (Auto) 1.3 (0.0-4.3) % Baso % (Auto) 0.9 (0.0-1.8) % Lymph # (Auto) 3.3 (1.2-5.4) K/mm3 [place] # (Auto) 1.1 H (0.0-0.8) K/mm3 Eos # (Auto) 0.1 (0.0-0.4) K/mm3 Baso # (Auto) 0.1 (0.0-0.1) K/mm3 Seg Neutrophils % 49.1 (40.0-70.0) % Seg Neutrophils # 4.4 (1.8-7.7) K/mm3 Sodium (137-145) mmol/L Potassium (3.6-5.0) mmol/L Chloride (98-107) mmol/L Carbon Dioxide (22-30) mmol/L Anion Gap mmol/L BUN (7-17) mg/dL Creatinine (0.6-1.2) mg/dL Estimated GFR ml/min BUN/Creatinine Ratio % Glucose (65-100) mg/dL Calcium (8.4-10.2) mg/dL Urine Color Yellow (Yellow) Urine Turbidity Clear (Clear) Urine pH 5.0 (5.0-7.0) Ur Specific [place] 1.029 (1.003-1.030) Urine Protein 30 mg/dl (Negative) mg/dL Urine Glucose (UA) Neg (Negative) mg/dL Urine Ketones Neg (Negative) mg/dL Urine Blood Neg (Negative) Urine Nitrite Neg (Negative) Urine Bilirubin Neg (Negative) Urine Urobilinogen 2.0 (<2.0) mg/dL Ur Leukocyte Esterase Neg (Negative) Urine WBC (Auto) 1.0 (0.0-6.0) /HPF Urine RBC (Auto) 3.0 (0.0-6.0) /HPF U Epithel Cells (Auto) 8.0 (0-13.0) /HPF Urine Mucus 3+ /HPF Salicylates (2.8-20.0) mg/dL Urine Opiates Screen Urine Methadone Screen Acetaminophen (10.0-30.0) ug/mL Ur Barbiturates Screen Ur Phencyclidine Scrn U Benzodiazepines Scrn Urine Cocaine Screen Plasma/Serum Alcohol 0.01 (0-0.07) % 10/26/20 Range/Units 18:48 WBC (4.5-11.0) K/mm3 RBC (3.65-5.03) M/mm3 Hgb (10.1-14.3) gm/dl Hct (30.3-42.9) % MCV (79-97) fl MCH (28-32) pg MCHC (30-34) % RDW (13.2-15.2) % Plt Count (140-440) K/mm3 Lymph % (Auto) (13.4-35.0) % [place] % (Auto) (0.0-7.3) % Eos % (Auto) (0.0-4.3) % Baso % (Auto) (0.0-1.8) % Lymph # (Auto) (1.2-5.4) K/mm3 [place] # (Auto) (0.0-0.8) K/mm3 Eos # (Auto) (0.0-0.4) K/mm3 Baso # (Auto) (0.0-0.1) K/mm3 Seg Neutrophils % (40.0-70.0) % Seg Neutrophils # (1.8-7.7) K/mm3 Sodium (137-145) mmol/L Potassium (3.6-5.0) mmol/L Chloride (98-107) mmol/L Carbon Dioxide (22-30) mmol/L Anion Gap mmol/L BUN (7-17) mg/dL Creatinine (0.6-1.2) mg/dL Estimated GFR ml/min BUN/Creatinine Ratio % Glucose (65-100) mg/dL Calcium (8.4-10.2) mg/dL Urine Color (Yellow) Urine Turbidity (Clear) Urine pH (5.0-7.0) Ur Specific [place] (1.003-1.030) Urine Protein (Negative) mg/dL Urine Glucose (UA) (Negative) mg/dL Urine Ketones (Negative) mg/dL Urine Blood (Negative) Urine Nitrite (Negative) Urine Bilirubin (Negative) Urine Urobilinogen (<2.0) mg/dL Ur Leukocyte Esterase (Negative) Urine WBC (Auto) (0.0-6.0) /HPF Urine RBC (Auto) (0.0-6.0) /HPF U Epithel Cells (Auto) (0-13.0) /HPF Urine Mucus /HPF Salicylates (2.8-20.0) mg/dL Urine Opiates Screen Negative Urine Methadone Screen Negative Acetaminophen (10.0-30.0) ug/mL Ur Barbiturates Screen Negative Ur Phencyclidine Scrn Negative U Benzodiazepines Scrn Negative Urine Cocaine Screen Negative Plasma/Serum Alcohol (0-0.07) % - Medical Decision Making 25-year-old female presents due to suicidal ideation. She has a history of schizophrenia is not on any medication. Denies visual or auditory hallucinations. No physical symptoms or complaints. She has mild tachycardia but an otherwise benign physical exam. 1013 order was signed and initiated with medical clearance labs sent. There is no significant leukocytosis or anemia, kidney function is normal, and there are no significant electrolyte abnormalities. Urinalysis does not show any evidence of UTI. Her UDS is positive for methamphetamine which likely explains her mild tachycardia. She is medically cleared for psychiatric evaluation and placement. <SANDY ARCHULETA - Last Filed: 10/26/20 19:43> - Lab Data Result diagrams: 10/26/20 18:45 10/26/20 18:45 - Medical Decision Making Patient is giving a completely different story regarding the incident that led to her being brought to the emergency department. She states she is not suicidal and she only said this to get out of warrant. Patient is now found out she does not have warranted she will not be going to detention and she is no longer having suicidal thoughts. Patient will be discharged home. <DALTON AYERS - Last Filed: 10/27/20 12:06> Critical care attestation.: If time is entered above; I have spent that time in minutes in the direct care of this critically ill patient, excluding procedure time. <SANDY ARCHULETA - Last Filed: 10/26/20 19:43> Critical care attestation.: If time is entered above; I have spent that time in minutes in the direct care of this critically ill patient, excluding procedure time. <DALTON AYERS - Last Filed: 10/27/20 12:06> ED Disposition <SANDY ARCHULETA - Last Filed: 10/26/20 19:43> Is pt being admited?: No Does the pt Need Aspirin: No Time of Disposition: 12:06 <DALTON AYERS - Last Filed: 10/27/20 12:06> Clinical Impression: Passive suicidal ideations Disposition: DC-01 TO HOME OR SELFCARE Condition: Stable Instructions: Suicidal Feelings: How to Help Yourself Additional Instructions: SUBSTANCE ABUSE PROGRAMS: [facility]: Location: [place] [place] [facility]! Address: [address] [place] [address] [facility]: Address: [address] [place], [place] [id number] [facility]: Address: [address] [place] [address] [facility]: Address: [address] [place] [address] [facility] Address: [address] [place] [address]. Please contact above numbers to attempt placement into free based program. Medicaid Programs: [facility]: Address: [address] [place] [address] [facility]: Address: [address] [place] [address] Professional and Agency Contacts To help [facility] Crises (27/10) CT Crisis Line: Suicide Prevention Line: Crisis Text Line: Text START to 263051 Emergency: 911 Outpatient COMMUNITY Behavioral Health Resources: [place]: [facility] [address] [place], [place] [address] [place]: [facility] [place] [address] [place] [address] Thursday thru Thursday - 8am - 5pm Call to schedule an assessment for mental health and substance abuse programs [place]: [facility] Address: [address] [place], [place] [address]Thursday thru Thursday- 7am-2pm [facility] Address: [address] [place], [place] [address]Thursday thru Thursday: 8:30AM-5PM Referrals: VIRGINIA THURSTON MD [Primary Care Provider] - 3-5 Days
[2020-10-27 11:06] VITALS: BP 124/64
--- NOTE | 2020-10-27 11:15 | Event Note ---
Date: 10/27/20 Pt stable with no complaints this morning. Patient told our psych assessment team today that she was just trying to get out of or more stating that she was suicidal. Patient states she has not drank bleach. Please see the assessment from our mental health team from yesterday versus today. Patient 1013 is been rescinded. Patient given outpatient resources and discharged home. IZZY SWEENEY Female : 1995 MedRec# [id number] 10/26/20 19:34 - MH Orthopaedic Nurse's Note by KRISTINA CAI Acct Num: [id number] : 1995 Patient Age: 25 MENTAL HEALTH ASSESSMENT COMPLETED: Pt is a 25 year old female; Per triage note, "Pt brought by [facility] for pt c/o SI, pt knocked on door in neighborhood and told homeowner she drank bleach but when EMS arrived she admitted she did not drink bleach but said that due to current circumstances of homelessness." Pt carries a diagnosis of Schizophrenia and Anxiety. Pt has no current outpatient mental health providers. Last time pt was prescribed psyc meds was "a year ago; I can't remember which ones. I didn't really take them. I'm better off without them." Orthopaedic Nurse asked pt why she came to the hospital if she is not open to medications, "You can talk to me about my problems all day long, but I'm not taking any medications." Pt has been admitted to inpatient [facility]: [facility]; "It's been a few years." "But I'm not taking any medications and I'm not going to no hospital." Pt reports that she is currently homeless; pt has been homeless "for a little over five years." Pt reports that she moved away from her five years ago. Pt reports has no children; although per pt records pt lost her children to [facility] due to IV drug use (heroin and meth). Pt reports that she has no primary support or parents/family; per pt chart, pt has mother (Kassidy). Pt has no source of income. Pt gets no food stamps, medicare. "I get food out of the [employer] cans." Pt reports that she sleeps on the streets, "pretty much anywhere." Pt reports that she, "could look into a detention, but I just don't." Pt has not applied for housing assistance or any jobs. "I just stay to myself. That's about it. I don't really want to get a job." Pt denies engaging in any substances; per pt records pt has extensive drug history. Pt tox came back as positive for amphetamine and THC. Pt reports, "I walked up on somebody, and they called the police for me." Pt expressed that she wants to harm herself; "I don't want to live anymore. I keep thinking about it (drinking bleach), but I haven't made any attempts." Pt reports triggers as: "Life," then patient begins to laugh. "I don't understand why we are here, and I don't want any part of this. I'm over it. Fuck it; I'm done with life." "I thought about digging in the person's trash can for some bleach, but I asked them for help. I don't know why God put me here. I have no purpose. I just can't get the balls do something drastic enough to end it all, but I'm thinking about it more and more now. Just watch." Pt denies any thoughts or plans of harming others. Pt is alert and oriented x 4. Pt appears irritable. Pt is not forthcoming (substance use). Pt is guarded and becomes irritable when nurse assessor explained the next step would be inpatient stabilization to get the patient back on her medication and refer her to outpatient providers; "No, I just needed to talk to someone a few minutes; I'm leaving. I'm not staying here." Pt ended assessment and walked to the nurse to advise that she is not suicidal and wants to leave. RECOMMENDATION: Recommend inpatient/1013 due to SI with intent and plan. Pt reports hopelessness with no reason to continue living. Kristina Camacho LPC Initialized on 10/26/20 19:34 - END OF NOTE Psychiatric Consult Note Patient Name: IZZY SWEENEY Date of : [birth year] Patient Status: Emergency Emergency Provider: SANDY ARCHULETA Date: 10/27/20 11:14 Initialization Date: 10/27/20 11:14 History of Present Illness - Reason for Consult Consult date: 10/27/20 Reason for consult: Suicidal thoughts - History of Present Psychiatric Illness Izzy Sweeney is a 25 year old female with a history of Schizophrenia and Anxiety who presents to the ED with suicidal thoughts. In my interview with the patient, she states she "screamed SI." yesterday because she thought she had a warrant. She said she went to her friends house and told her that she had ingested some bleach and her friend initiated the 911 call. The patient reports that she was in senior care for six months and was released about two months ago. The patient said the police told her that she does not have a warrant; she denies any current suicidal thoughts and denies hallucinations. PAST PSYCHIATRIC HISTORY Diagnoses: Schizophrenia, Anxiety Suicide attempts or Self-harm behavior: Denies Prior psychiatric hospitalizations: Yes Substance Abuse history: Denies Previous psychiatric medications tried: Risperidone, Vistaril Outpatient treatment: yes SOCIAL HISTORY Marital Status: Single Living Arrangements: Homeless Employment Status: unemployed Access to guns/weapons: Denied Education: GED History of Abuse: Denied Legal History: None reported REVIEW OF SYSTEMS Constitutional: Negative for weight loss ENT: Negative for stridor Respiratory: Negative for cough or hemoptysis All other systems reviewed and are negative MENTAL STATUS EXAMINATION General Appearance and Behavior: Age appropriate, dressed appropriately, calm and cooperative Cooperation: Participating Psychomotor Behavior: psychomotor normal Mood: calm Affect and affective range: Congruent with stated mood Thought Process: goal directed Thought Content: with normal limits Speech: Normal volume, Regular rate and rhythm, Intellectual Functioning: Average Suicidal Ideation: Denied Homicidal Ideation: Denied Hallucinations: Denied Delusions: None elicited Impulse Control: Unimpaired Insight and Judgment: Limited insight and judgment, Memory: Normal Attention: Undivided Orientation: Alert, oriented Assessment and Plan (1)Anxiety Disorder, Unspecified- F41.9 Treatment plan Risks, benefits and alternatives of medications discussed with the patient, questions answered and consent obtained from patient. PSYCHOTHERAPY: Supportive psychotherapy provided MEDICAL: Per primary team DELIRIUM PRECAUTIONS: Please re-orient patient frequently, keep lights on during the day, and minimize benzodiazepines and opiates as these medications could worsen patient's confusion. BUSINESS CONTROL MANAGER: Per medical team DISPOSITION: Do not recommend acute inpatient psychiatric hospitalization at this time. Patient was informed that if suicidal/homicidal ideation/withdrawal symptoms arise, He should immediately seek for emergent assistance including but not limited to crisis hot line and emergency room. The nurse assessor to give the patient resources for a detention, transportation pass, CBT, med management and alcohol rehab programs The patient to follow up with outpatient psych in 7 to 14 days upon discharge The patient to abstain from alcohol use FOLLOW-UP: Will sign off Thank you for the consult. Please contact with any questions and/or concerns. Case staffed with Dr. Gallo Medications and Allergies Allergies Allergy/AdvReac Type Severity Reaction Status Date / Time No Known Allergies Allergy Verified 03/16/18 07:04 Home Medications Medication Instructions Recorded Confirmed Last Taken Type Chlorhexidine Gluconate [Hibiclens] 10 ml TP BID #240 liquid 09/27/18 10/27/20 Unknown Rx Sulfamethoxazole/Trimethoprim 1 each PO BID #20 tablet 09/27/18 10/27/20 Unknown Rx [Bactrim Ds] cephALEXin [Keflex] 500 mg PO Q6HR #40 capsule 09/27/18 10/27/20 Unknown Rx Mental Status Exam - Vital signs Last Vital Signs Temp 97.8 F 10/27/20 11:02 Pulse 73 10/27/20 11:02 Resp 20 10/27/20 11:02 BP 124/64 10/27/20 11:02 Pulse Ox 96 10/27/20 11:02 Results Result Diagrams: 10/26/20 18:45 [Image 0] 10/26/20 18:45 [Image 1] Abnormal lab results 10/26/20 10/26/20 10/26/20 Range/Units 18:45 18:45 18:45 Lymph % (Auto) (13.4-35.0) % Chambers % (Auto) (0.0-7.3) % Chambers # (Auto) (0.0-0.8) K/mm3 Potassium 3.4 L (3.6-5.0) mmol/L Chloride 97.0 L (98-107) mmol/L Salicylates < 0.3 L (2.8-20.0) mg/dL Acetaminophen 5.0 L (10.0-30.0) ug/mL 10/26/20 Range/Units 18:45 Lymph % (Auto) 36.8 H (13.4-35.0) % [place] % (Auto) 11.9 H (0.0-7.3) % [place] # (Auto) 1.1 H (0.0-0.8) K/mm3 Potassium (3.6-5.0) mmol/L Chloride (98-107) mmol/L Salicylates (2.8-20.0) mg/dL Acetaminophen (10.0-30.0) ug/mL All other labs normal.
--- NOTE | 2020-10-27 11:27 | Consultation ---
History of Present Illness - Reason for Consult Consult date: 10/27/20 Reason for consult: Suicidal thoughts - History of Present Psychiatric Illness Izzy Mendenhall is a 25 year old female with a history of Schizophrenia and Anxiety who presents to the ED with suicidal thoughts. In my interview with the patient, she states she "screamed SI." yesterday because she thought she had a warrant. She said she went to her friends house and told her that she had ingested some bleach and her friend initiated the 911 call. The patient reports that she was in nursing home for six months and was released about two months ago. The patient said the police told her that she does not have a warrant; she denies any current suicidal thoughts and denies hallucinations. PAST PSYCHIATRIC HISTORY Diagnoses: Schizophrenia, Anxiety Suicide attempts or Self-harm behavior: Denies Prior psychiatric hospitalizations: Yes Substance Abuse history: Denies Previous psychiatric medications tried: Risperidone, Vistaril Outpatient treatment: yes SOCIAL HISTORY Marital Status: Single Living Arrangements: Homeless Employment Status: unemployed Access to guns/weapons: Denied Education: GED History of Abuse: Denied Legal History: None reported REVIEW OF SYSTEMS Constitutional: Negative for weight loss ENT: Negative for stridor Respiratory: Negative for cough or hemoptysis All other systems reviewed and are negative MENTAL STATUS EXAMINATION General Appearance and Behavior: Age appropriate, dressed appropriately, calm and cooperative Cooperation: Participating Psychomotor Behavior: psychomotor normal Mood: calm Affect and affective range: Congruent with stated mood Thought Process: goal directed Thought Content: with normal limits Speech: Normal volume, Regular rate and rhythm, Intellectual Functioning: Average Suicidal Ideation: Denied Homicidal Ideation: Denied Hallucinations: Denied Delusions: None elicited Impulse Control: Unimpaired Insight and Judgment: Limited insight and judgment, Memory: Normal Attention: Undivided Orientation: Alert, oriented Assessment and Plan (1)Anxiety Disorder, Unspecified- F41.9 Treatment plan Risks, benefits and alternatives of medications discussed with the patient, questions answered and consent obtained from patient. PSYCHOTHERAPY: Supportive psychotherapy provided MEDICAL: Per primary team DELIRIUM PRECAUTIONS: Please re-orient patient frequently, keep lights on during the day, and minimize benzodiazepines and opiates as these medications could worsen patient's confusion. COUNSELOR DORMITORY: Per medical team DISPOSITION: Do not recommend acute inpatient psychiatric hospitalization at this time. Patient was informed that if suicidal/homicidal ideation/withdrawal symptoms arise, He should immediately seek for emergent assistance including but not limited to crisis hot line and emergency room. The aviation technician to give the patient resources for a correction, transportation pass, CBT, med management and alcohol rehab programs The patient to follow up with outpatient psych in 7 to 14 days upon discharge The patient to abstain from alcohol use FOLLOW-UP: Will sign off Thank you for the consult. Please contact with any questions and/or concerns. Case staffed with Dr. Gallo Medications and Allergies Allergies Allergy/AdvReac Type Severity Reaction Status Date / Time No Known Allergies Allergy Verified 03/16/18 07:04 Home Medications Medication Instructions Recorded Confirmed Last Taken Type Chlorhexidine Gluconate [Hibiclens] 10 ml TP BID #240 liquid 09/27/18 10/27/20 Unknown Rx Sulfamethoxazole/Trimethoprim 1 each PO BID #20 tablet 09/27/18 10/27/20 Unknown Rx [Bactrim Ds] cephALEXin [Keflex] 500 mg PO Q6HR #40 capsule 09/27/18 10/27/20 Unknown Rx Mental Status Exam - Vital signs Last Vital Signs Temp 97.8 F 10/27/20 11:02 Pulse 73 10/27/20 11:02 Resp 20 10/27/20 11:02 BP 124/64 10/27/20 11:02 Pulse Ox 96 10/27/20 11:02 Results Result Diagrams: 10/26/20 18:45 10/26/20 18:45 Abnormal lab results 10/26/20 10/26/20 10/26/20 Range/Units 18:45 18:45 18:45 Lymph % (Auto) (13.4-35.0) % [place] % (Auto) (0.0-7.3) % [place] # (Auto) (0.0-0.8) K/mm3 Potassium 3.4 L (3.6-5.0) mmol/L Chloride 97.0 L (98-107) mmol/L Salicylates < 0.3 L (2.8-20.0) mg/dL Acetaminophen 5.0 L (10.0-30.0) ug/mL 10/26/20 Range/Units 18:45 Lymph % (Auto) 36.8 H (13.4-35.0) % [place] % (Auto) 11.9 H (0.0-7.3) % [place] # (Auto) 1.1 H (0.0-0.8) K/mm3 Potassium (3.6-5.0) mmol/L Chloride (98-107) mmol/L Salicylates (2.8-20.0) mg/dL Acetaminophen (10.0-30.0) ug/mL All other labs normal.
== END 2020-10-27 12:42 | disposition home or self-care (01) ==
LOC: ED 18:04
DX: R45.851 Suicidal ideations (principal); Z20.822 Contact with and (suspected) exposure to COVID-19; Z79.899 Other long term (current) drug therapy
CPT/HCPCS: 36415; 80048; 80307; 81001; 84703; 85025; 99284; U0003; 80320; G0480

== ENCOUNTER 2020-12-19 20:46 | Emergency (ER) | payer SELFPAY ==
[2020-12-19 21:33] VITALS: BP 96/32
--- NOTE | 2020-12-19 21:49 | Event Note ---
ED Screening Note Date of service: 12/19/20 Time: 21:47 ED Screening Note: 25-year-old female patient with history of polysubstance abuse presents to emergency department requesting detoxification. Patient states she is a heroin, methamphetamine, and fentanyl user. Patient states she last used drugs approximately 1 hour ago. Patient participated in a 9-month detoxification program earlier this year but left the facility early. Cannot recall last menstrual cycle. Patient is currently complaining of dizziness and generalized weakness. BP 96/32 in triage General: Clinically intoxicated. Somnolent but easily arousable with verbal stimulus. Neck: Supple. Full range of motion intact. Cardiovascular: Normal peripheral perfusion. Pulmonary: No respiratory distress. Patient is speaking normally without use of accessory muscles. Skin: No apparent rashes or lesions. Neurological: Slurred speech. Follows commands. Musculoskeletal: Moves all four extremities spontaneously with normal range of motion. Psych: Cooperative. I have greeted and performed a focused rapid initial assessment of this patient. A comprehensive ED assessment and evaluation of the patient, analysis of all test results, and completion of the medical decision-making process will be conducted by additional ED providers. This initial assessment/diagnostic orders/clinical plan/treatment(s) is/are subject to change based on patients health status, clinical progression and re-assessment. Further treatment and workup at subsequent clinical provider's discretion. Patient/guardian urged not to elope from the ED as their condition may be serious if not clinically assessed and managed.
--- NOTE | 2020-12-19 22:07 | Emergency Department Report ---
ED Medical Clearance [facility] - General Chief complaint: Medical Clearance Stated complaint: DETOX Time Seen by Provider: 12/19/20 22:03 Source: patient Mode of arrival: Ambulatory - History of Present Illness Initial comments: Patient is a 25-year-old female who presents emergency room with complaints of desire detox. Patient states she wants her medical clearance that she go to a detox center. Patient states that she needs some resources. Patient states that she is addicted to heroin, fentanyl, meth and GHB. Patient states she last used those approximately an hour prior to arrival. Patient states she smokes cigarettes. Patient denies alcohol use. Patient states she has no medical history. Patient denies pain. Patient denies recent injury. Patient denies any physical complaints. Patient denies fever or chills. Patient states she has not vaccinated against COVID-19. Patient denies recent travel. Patient denies recent international travel. Patient denies exposure to the novel coronavirus. Patient denies sick contacts. Patient denies fever and chills. Patient denies cough. Patient denies diarrhea. Patient denies coming in contact with anybody with symptoms of the novel coronavirus. Patient denies suicidal and homicidal ideations. Patient complains of depression. Patient denies anxiety. Patient denies hallucinations. Complaint: medical clearance request -: Sudden Reason for Medical Clearance: intoxication Alledged Intoxication: Yes Compliant with Home Medications: Yes Traumatic Symptoms: denies traumatic injury Treatments Prior to Arrival: none Home medications: Previous Rx's Medication Instructions Recorded Last Taken Type Chlorhexidine Gluconate [Hibiclens] 10 ml TP BID #240 liquid 09/27/18 Unknown Rx Sulfamethoxazole/Trimethoprim 1 each PO BID #20 tablet 09/27/18 Unknown Rx [Bactrim Ds] cephALEXin [Keflex] 500 mg PO Q6HR #40 capsule 09/27/18 Unknown Rx Allergies/Adverse reactions: Allergies Allergy/AdvReac Type Severity Reaction Status Date / Time No Known Allergies Allergy Verified 03/16/18 07:04 ED Review of Systems ROS: Stated complaint: DETOX Other details as noted in HPI Constitutional: denies: chills, fever Eyes: denies: eye pain, eye discharge, vision change ENT: denies: ear pain, throat pain Respiratory: denies: cough, shortness of breath, wheezing Cardiovascular: denies: chest pain, palpitations Endocrine: no symptoms reported Gastrointestinal: denies: abdominal pain, nausea, diarrhea Genitourinary: denies: urgency, dysuria, discharge Musculoskeletal: denies: back pain, joint swelling, arthralgia Skin: denies: rash, lesions Neurological: denies: headache, weakness, paresthesias Psychiatric: as per HPI, depression. denies: anxiety, auditory hallucinations, visual hallucinations, homicidal thoughts, suicidal thoughts Hematological/Lymphatic: denies: easy bleeding, easy bruising ED Past Medical Hx - Past Medical History Previous Medical History?: Yes Hx Hypertension: No Hx Diabetes: No Hx Deep Vein Thrombosis: No Hx Renal Disease: No Hx Sickle Cell Disease: No Hx Seizures: No Hx Psychiatric Treatment: Yes (drug use) Hx Asthma: No Hx HIV: No - Surgical History Past Surgical History?: No - Family History Family history: no significant - Social History Smoking Status: Current Every Day Smoker Substance Use Type: Heroin, Methamphetamines, Other - Medications Home Medications: Home Medications Medication Instructions Recorded Confirmed Last Taken Type Chlorhexidine Gluconate [Hibiclens] 10 ml TP BID #240 liquid 09/27/18 10/27/20 Unknown Rx Sulfamethoxazole/Trimethoprim 1 each PO BID #20 tablet 09/27/18 10/27/20 Unknown Rx [Bactrim Ds] cephALEXin [Keflex] 500 mg PO Q6HR #40 capsule 09/27/18 10/27/20 Unknown Rx ED Physical Exam - General Limitations: No Limitations General appearance: alert, in no apparent distress - Head Head exam: Present: atraumatic, normocephalic - Eye Eye exam: Present: normal appearance - ENT ENT exam: Present: mucous membranes moist - Neck Neck exam: Present: normal inspection - Respiratory Respiratory exam: Present: normal lung sounds bilaterally. Absent: respiratory distress - Cardiovascular Cardiovascular Exam: Present: regular rate, normal rhythm. Absent: systolic murmur, diastolic murmur, rubs, gallop - GI/Abdominal GI/Abdominal exam: Present: soft, normal bowel sounds - Extremities Exam Extremities exam: Present: normal inspection - Back Exam Back exam: Present: normal inspection - Neurological Exam Neurological exam: Present: alert, oriented X3 - Psychiatric Psychiatric exam: Present: depressed, flat affect - Skin Skin exam: Present: warm, dry, intact, normal color. Absent: rash ED Course Vital Signs 12/19/20 21:13 Temperature 97.8 F Pulse Rate 77 Respiratory 16 Rate Blood Pressure 96/32 O2 Sat by Pulse 98 Oximetry - Consultations Consultation #1: I discussed the case with our mental health dry house attendant. Mental dry house attendant states that we can give the patient resources once the patient is medically cleared and the patient can follow-up as an outpatient with a rehab center. 12/19/20 22:18 ED Medical Decision Making - Lab Data Result diagrams: 12/19/20 21:59 12/19/20 21:59 - EKG Data -: EKG Interpreted by Me EKG shows normal: sinus rhythm, axis, intervals, QRS complexes, ST-T waves Rate: normal - Medical Decision Making Patient is a 25-year-old female who presents emergency room for desire detox. Patient states she has a long history of drug use. Patient states she uses multiple different drugs to include methamphetamines, heroin, fentanyl, GHB. P atient states her last use was an hour prior to arrival. Patient states she wants to get some help so she stopped using drugs. Patient desires to be sent to a rehab facility. Patient had labs done which were essentially unremarkable. Patient is medically cleared. Patient had an EKG done which was negative for acute findings. Patient's EKG showed a normal ST T-segment. I personally reviewed the EKG. I discussed the treatment options at this facility for detox. The mental dry house attendant states that once the patient is medically cleared, the patient will need to follow-up as an outpatient and for detox we can give the patient a printed resource sheet. Patient does not require inpatient service. Patient does not require any further emergency medical service. Patient is not in active withdrawal. Patient is stable for discharge. Patient is discharged home. Patient is stable to follow-up with an outpatient rehab center. Patient discharged home. - Differential Diagnosis Polysubstance abuse, drug addiction, desired rehab ED Disposition Clinical Impression: Polysubstance abuse, Desire for detoxification Disposition: 01 HOME / SELF CARE / HOMELESS Is pt being admited?: No Does the pt Need Aspirin: No Condition: Stable Instructions: Substance Use Disorder, Supporting Someone With Substance Use Disorder Additional Instructions: Patient to follow-up with primary care in 2 to 3 days. Patient to contact one of the rehab centers below for rehab services. Patient to rest. Patient to increase water. Patient to avoid drug use. Patient to take Tylenol or ibuprofen as needed for pain. Patient to return to the ER if condition worsens, changes or new symptoms arise. In case of an emergency, please contact the following numbers: [place] Crisis and Access Line: Number: Crisis Text Line: (Text START) Number: 909049 Suicide Prevention Line: Number: Emergency Number: 911 SUBSTANCE ABUSE PROGRAMS: [facility]: Location: [place], [place] [facility] Address: [address] [place] [address] [facility] Recovery: Address: [address] [place] [address] [facility] Address: [address] [place] [address] [facility] Community: Address: [address] [place] [address] [facility] Address: [address] [place] [id number]. Please contact above numbers to attempt placement into free based program. Medicaid Programs: [facility]: Address: [address] [place] [address] [facility]: Address: [address] [place] [id number] Time of Disposition: 23:24
[2020-12-19 22:15] LABS: Basophils # (Auto) 0.1 K/mm3 (0.0-0.1); Basophils % (Auto) 0.7 % (0.0-1.8); Eosinophils # (Auto) 0.1 K/mm3 (0.0-0.4); Eosinophils % (Auto) 0.5 % (0.0-4.3); Hematocrit 43.1 % (30.3-42.9); Hemoglobin 14.6 gm/dl (10.1-14.3); Lymphocytes % (Auto) 19.2 % (13.4-35.0); Mean Corpuscular HGB Conc 34 % (30-34); Mean Corpuscular Volume 95 fl (79-97); Monocytes # (Auto) 0.8 K/mm3 (0.0-0.8); Platelet Count 310 K/mm3 (140-440); Red Blood Count 4.52 M/mm3 (3.65-5.03)
[2020-12-19 22:36] LABS: Alanine Aminotransferase 17 units/L (7-56); Albumin 4.7 g/dL (3.9-5); BUN/Creatinine Ratio 26; Blood Urea Nitrogen 18 mg/dL (7-17); Calcium 9.7 mg/dL (8.4-10.2); Hemolysis Index 9
[2020-12-20 00:07] LABS: Bilirubin,Urine NEG (Negative); Blood,Urine NEG (Negative); Calcium Oxalate Crystals,Urine FEW; Color,Urine Yellow (Yellow); Mucus,Urine 3+ /HPF
[2020-12-20 00:11] LABS: Amphetamine Screen,Urine PRESUMPTIVE POSITIVE; Benzodiazepines Screen,Urine PRESUMPTIVE NEGATIVE; Cannabinoid Screen,Urine PRESUMPTIVE POSITIVE; Cocaine Screen,Urine PRESUMPTIVE NEGATIVE; Methadone Screen,Urine PRESUMPTIVE NEGATIVE; Opiate Screen,Urine PRESUMPTIVE POSITIVE
--- NOTE | 2020-12-21 13:25 | Electrocardiograph Report ---
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
== END 2020-12-19 23:50 | disposition home or self-care (01) ==
LOC: ED 20:46
DX: F19.10 Other psychoactive substance abuse, uncomplicated (principal); F17.200 Nicotine dependence, unspecified, uncomplicated
CPT/HCPCS: 36415; 80053; 80307; 80320; 81001; 84443; 84703; 85025; 93005; 99283; G0480

== ENCOUNTER 2021-03-12 19:01 | Emergency (ER) | payer SELFPAY ==
[2021-03-12] MEDS ORDERED: ONDANSETRON 4 MG ODT TAB PO ONE (19:44)
[2021-03-12] MEDS ORDERED: NALOXONE 0.4 MG/1 ML INJ IV PRN (19:44)
--- NOTE | 2021-03-12 19:46 | Emergency Department Report ---
ED General Adult HPI - General Chief complaint: Medical Clearance Stated complaint: MEDICAL CLERANCE PUI?: No Time Seen by Provider: 03/12/21 19:19 Source: patient, EMS ( EMS documentation not available at time of chart d ictation ), RN notes reviewed Mode of arrival: Stretcher Limitations: No Limitations - History of Present Illness Initial comments: The patient is a 25-year-old female, who reports that she is homeless, and re ports that she has a history of polysubstance abuse, presenting to the ER today with a request for detoxification. The patient reports abusing multiple drugs, including GHB, meth, and crystal. She denies physical pain. She denies fever. She denies homicidality and suicidality. She states that she is homeless. She states that she was previously from [facility]. She states that she does not currently take prescription medications at this time. She states that she knows it is her job to get clean, but she would like assistance with detox therapy. She has some mild body aches. She denies loss of taste and smell. She denies urinary symptoms. She denies intentional overdose. She denies homicidality and suicidality - Related Data Previous Rx's Medication Instructions Recorded Last Taken Type Naloxone HCl [Narcan Nasal Hankins] 4 mg NS PRN PRN #1 spray 03/13/21 Unknown Rx Ondansetron [Zofran Odt] 4 mg PO Q8HR PRN #20 tab.rapdis 03/13/21 Unknown Rx Allergies Allergy/AdvReac Type Severity Reaction Status Date / Time No Known Allergies Allergy Verified 03/12/21 19:55 ED Review of Systems ROS: Stated complaint: MEDICAL CLERANCE Other details as noted in HPI Constitutional: malaise. denies: fever Eyes: denies: eye discharge Respiratory: cough Cardiovascular: denies: syncope Gastrointestinal: denies: abdominal pain Musculoskeletal: myalgia Neurological: denies: weakness Psychiatric: anxiety, depression. denies: homicidal thoughts, suicidal thoughts ED Past Medical Hx - Past Medical History Hx Hypertension: No Hx Diabetes: No Hx Deep Vein Thrombosis: No Hx Renal Disease: No Hx Sickle Cell Disease: No Hx Seizures: No Hx Psychiatric Treatment: Yes (drug use) Hx Asthma: No Hx HIV: No - Social History Smoking Status: Current Every Day Smoker Substance Use Type: Heroin, Methamphetamines, Other - Medications Home Medications: Home Medications Medication Instructions Recorded Confirmed Last Taken Type Naloxone HCl [Narcan Nasal Hankins] 4 mg NS PRN PRN #1 spray 03/13/21 Unknown Rx Ondansetron [Zofran Odt] 4 mg PO Q8HR PRN #20 tab.rapdis 03/13/21 Unknown Rx ED Physical Exam - General General appearance: alert, anxious - Head Head exam: Present: atraumatic, normocephalic - Eye Eye exam: Present: normal appearance, EOMI. Absent: nystagmus - ENT ENT exam: Present: normal exam, normal orophraynx, mucous membranes moist, normal external ear exam - Neck Neck exam: Present: normal inspection, full ROM. Absent: tenderness, men ingismus - Respiratory Respiratory exam: Present: normal lung sounds bilaterally. Absent: respiratory distress, wheezes, rales, rhonchi, stridor, decreased breath sounds - Cardiovascular Cardiovascular Exam: Present: regular rate, normal rhythm, normal heart sounds. Absent: bradycardia, tachycardia, irregular rhythm, systolic murmur, diastolic murmur, rubs, gallop - GI/Abdominal GI/Abdominal exam: Present: soft. Absent: distended, tenderness, guarding, rebound, rigid, pulsatile mass - Extremities Exam Extremities exam: Present: normal inspection, full ROM, other (2+ pulses noted in the bilateral upper and lower extremities. There is no palpable cord. negative Homans sign. Muscular compartments are soft. The pelvis is stable.). Absent: pedal edema, calf tenderness - Back Exam Back exam: Present: normal inspection, full ROM. Absent: tenderness, CVA tenderness (R), CVA tenderness (L), paraspinal tenderness, vertebral tenderness - Neurological Exam Neurological exam: Present: alert, oriented X3, normal gait, other (No facial droop. Tongue midline. Extraocular movements intact bilaterally. Facial sensation intact to light touch in V1, V2, V3 distribution bilaterally. 5 and a 5 strength in 4 extremities. Sensation intact to light touch in 4 extremities.). Absent: motor sensory deficit - Psychiatric Psychiatric exam: Present: anxious. Absent: suicidal ideation - Skin Skin exam: Present: warm, dry, intact, normal color. Absent: rash ED Course Vital Signs 03/12/21 21:09 Temperature 97.3 F L Pulse Rate 83 Respiratory 16 Rate Blood Pressure 101/55 [Left] O2 Sat by Pulse 97 Oximetry - Reevaluation(s) Reevaluation #1: 03/12/21 21:21 Differential diagnosis, including but not limited to: Polysubstance abuse and dependence, encounter for medical screening examination, encounter for behavioral health screening examination Assessment and plan: 25-year-old female, who was afebrile, with reassuring vital signs, is clinically intoxicated at this time, but not homicidal, suicidal, not experiencing hallucinations, with request for detox. Serum toxicology studies unremarkable. Denies urinary symptoms. Recently had unremarkable CBC. Patient will be observed in this ER pending clinical sobriety. She will be then discharged with outpatient resources, and appropriate as needed medications. 03/13/21 00:23 Patient ambulating with a steady gait. No nausea, vomiting or diarrhea. She is resting comfortably at this time. She appears to be clinically sober at this time. She is suitable for discharge at this time with outpatient follow-up. She will be given outpatient resources. ED Medical Decision Making - Lab Data Result diagrams: 03/12/21 20:10 Vital Signs 03/12/21 21:09 Temperature 97.3 F L Pulse Rate 83 Respiratory 16 Rate Blood Pressure 101/55 [Left] O2 Sat by Pulse 97 Oximetry Lab Results 03/12/21 03/12/21 03/12/21 Range/Units 20:10 20:10 20:10 Sodium 140 (137-145) mmol/L Potassium 3.8 (3.6-5.0) mmol/L Chloride 102.4 (98-107) mmol/L Carbon Dioxide 24 (22-30) mmol/L Anion Gap 17 mmol/L BUN 12 (7-17) mg/dL Creatinine 0.7 (0.6-1.2) mg/dL Estimated GFR > 60 ml/min BUN/Creatinine Ratio 17 % Glucose 91 (65-100) mg/dL Calcium 8.7 (8.4-10.2) mg/dL Magnesium 2.00 (1.7-2.3) mg/dL Total Bilirubin 0.30 (0.1-1.2) mg/dL AST 20 (5-40) units/L ALT 19 (7-56) units/L Alkaline Phosphatase 65 (35-129) units/L Total Creatine Kinase 234 H (30-135) units/L Total Protein 6.6 (6.3-8.2) g/dL Albumin 4.0 (3.9-5) g/dL Albumin/Globulin Ratio 1.5 % HCG, Quant < 2 (0-4) mIU/mL Salicylates < 0.3 L (2.8-20.0) mg/dL Acetaminophen (10.0-30.0) ug/mL Plasma/Serum Alcohol (0-0.07) % 03/12/21 03/12/21 Range/Units 20:10 20:10 Sodium (137-145) mmol/L Potassium (3.6-5.0) mmol/L Chloride (98-107) mmol/L Carbon Dioxide (22-30) mmol/L Anion Gap mmol/L BUN (7-17) mg/dL Creatinine (0.6-1.2) mg/dL Estimated GFR ml/min BUN/Creatinine Ratio % Glucose (65-100) mg/dL Calcium (8.4-10.2) mg/dL Magnesium (1.7-2.3) mg/dL Total Bilirubin (0.1-1.2) mg/dL AST (5-40) units/L ALT (7-56) units/L Alkaline Phosphatase (35-129) units/L Total Creatine Kinase (30-135) units/L Total Protein (6.3-8.2) g/dL Albumin (3.9-5) g/dL Albumin/Globulin Ratio % HCG, Quant (0-4) mIU/mL Salicylates (2.8-20.0) mg/dL Acetaminophen < 5.0 L (10.0-30.0) ug/mL Plasma/Serum Alcohol < 0.01 (0-0.07) % Critical care attestation.: If time is entered above; I have spent that time in minutes in the direct care of this critically ill patient, excluding procedure time. ED Disposition Clinical Impression: Encounter for medical screening examination, Encounter for behavioral health screening, Polysubstance abuse, Cough Disposition: 01 HOME / SELF CARE / HOMELESS Is pt being admited?: No Does the pt Need Aspirin: No Condition: Good Instructions: Substance Use Disorder and Mental Illness Additional Instructions: Recommend that patient discontinue use of recreational drugs. Recreational drug consumption may cause addiction, , disability, paralysis, and loss of quality of life. Follow-up with an outpatient primary care doctor within the next week to 2 weeks. Follow-up with an outpatient mental health specialist or counselor soon as possible to initiate outpatient detox therapy. Patient will be given a list of local outpatient detox facilities. The patient was seen, treated and evaluated in the emergency room this evening, and was not found to have an emergent medical condition at this time which would preclude outpatient detox therapy. Use the Zofran medication as needed for nausea and vomiting. Use the Narcan medication as needed for opioid overdose. Strongly advised patient to avoid opioid consumption at all costs, as opioid abuse may cause respiratory depression, and . Please return to the emergency room right away with new pain, worsened pain, migration of pain, homicidality, suicidality, change in mental status, confusion, or any new, worsened or different symptoms not present on the initial emergency room evaluation Referrals: [facility] [Outside] - 3-5 Days [facility] [Outside] - 3-5 Days
[2021-03-12 20:43] LABS: Alanine Aminotransferase 19 units/L (7-56); Blood Urea Nitrogen 12 mg/dL (7-17); Calcium 8.7 mg/dL (8.4-10.2); Hemolysis Index 6
[2021-03-12 21:03] LABS: BUN/Creatinine Ratio 17
--- NOTE | 2021-03-12 21:39 | XRay Report ---
CHEST 2 VIEWS INDICATION / CLINICAL INFORMATION: cough bronchitiis. COMPARISON: None available. FINDINGS: SUPPORT DEVICES: None. HEART / MEDIASTINUM: No significant abnormality. LUNGS / PLEURA: No significant pulmonary or pleural abnormality. No pneumothorax. ADDITIONAL FINDINGS: No significant additional findings. IMPRESSION: 1. No acute findings. Signer Name: Jefferson Pleitez MD Signed: 03/12/2021 9:35 PM Workstation Name: [id number]
--- NOTE | 2021-03-13 04:06 | Emergency Department Report ---
Blank Doc - Documentation Documentation: I was asked to see the patient by the nursing staff because of reports of conc erns with altered mental status. They report that she seem to be somnolent and difficult to arouse. She does seem to be off. When I went to evaluate the patient, she was awake and conversant. She was lucid. She was able to sit up and carry on a cogent conversation. She had insight into her disease process and current status. I did review her labs. She verbalized concern for hepatitis because she shares needles. Hepatitis panel was ordered. At this time, patient does not have altered mental status during my evaluation. We will continue to observe and await disposition.
[2021-03-13 05:18] LABS: Hepatitis C Virus Antibody Non-Reactive (NonReactive)
[2021-03-13 05:44] LABS: Hepatitis B Surface Antigen Nonreactive (Negative)
[2021-03-13 06:07] VITALS: BP 110/63
== END 2021-03-13 06:07 | disposition home or self-care (01) ==
LOC: ED 19:01
DX: F19.10 Other psychoactive substance abuse, uncomplicated (principal); F15.10 Other stimulant abuse, uncomplicated; F11.10 Opioid abuse, uncomplicated; R05.9 Cough, unspecified; M79.89 Other specified soft tissue disorders; Z13.39 Encounter for screening examination for other mental health and behavioral disorders; Z59.00 Homelessness unspecified; F17.290 Nicotine dependence, other tobacco product, uncomplicated
CPT/HCPCS: 36415; 71046; 80053; 80074; 80320; 82550; 83735; 84702; 99284; J3490; G0480; Q0162